=== PATIENT | female | born 1960 | race Caucasian/White ===

== ENCOUNTER 2016-11-27 23:34 | Inpatient (IN) | payer MEDICAID, OTHER ==
[~2016-11-27] VITALS: Ht 170.2 cm; Wt 83.5 kg
[~2016-11-27 23:34] MED LIST: BACTDS PO; BENA10TA48 PO; CEPH-443 PO; DICY20TA59 PO; GLYB5TAB3 PO; HYDR-3498 PO; IBUP-1542 PO; METF500T4 PO; RANI150T5 PO; SERT25TA83 PO; SITA100T8 PO; TRAM50TA2 PO
[2016-11-27 23:39] VITALS: Ht 170.2 cm; Wt 83.5 kg
[2016-11-27] MEDS ORDERED: SODIUM CHLORIDE 0.9% 1L BAG IV* STA (23:59)
[2016-11-27] MEDS ORDERED: CEFEPIME 2GM/50 ML (PMX) 50 ML IVPB STA (23:59)
[2016-11-27] MEDS ORDERED: ACETAMINOPHEN 325 MG TAB PO STA (23:59)
[2016-11-28] MEDS ORDERED: VANCOMYCIN 1 GM (PMX) 250 ML IVPB ONE
[2016-11-28 00:20] LABS: AADO2 Arterial 47.2 mmHg (7.0-24.0); Allen Test ACCEPTAB; Arterial Base Excess -13.9 mmol/L (-3.0-3); Arterial COHb 0.3 % (0.0-3.0); Arterial HCO3 9.8 mmol/L (22.0-26.0); Arterial MetHb 0.2 % (0.0-1.5); Arterial Total Hemglobin 11.2 g/dl (12.0-18.0); MODE ROOM AIR
[2016-11-28 00:27] LABS: ADD SCAN DIFF NO
[2016-11-28 00:47] LABS: INR 1.06; PROTIME 13.8 Sec (12.2-14.2); PT RATIO 1.1
[2016-11-28 00:48] LABS: PARTIAL THROMBOPLASTIN TIME 31.3 Sec (25.0-35.0)
[2016-11-28 00:53] LABS: ALBUMIN 3.5 g/dl (3.3-4.9); ALBUMIN/GLOBULIN RATIO 0.85; BILIRUBIN,INDIRECT 0.1 mg/dl (0-1.1); BILIRUBIN,TOTAL 0.1 mg/dl (0.2-1.3); CALCIUM 9.2 mg/dl (8.4-10.2); CREATININE 0.76 mg/dl (0.44-1.00); TOTAL PROTEIN 7.6 g/dl (6.1-8.1)
--- NOTE | 2016-11-28 00:55 | RADRPT ---
PROCEDURE: XR Chest. CLINICAL INDICATION: Possible sepsis. TECHNIQUE: Single frontal view of the chest. COMPARISON: 06/29/2014. FINDINGS: Cardiomegaly. Mild pulmonary vascular congestion. The lungs are clear. No signs of pleural fluid or pneumothorax are seen. The osseous structures and soft tissues are unremarkable. IMPRESSION: No evidence for active cardiopulmonary disease. RPTAT: [facility] Physician Suresh Date Time Electronically viewed and signed by Physician Surseh on 11/28/2016 00:55 RS/
[2016-11-28 01:05] LABS: TROPONIN-I 0.014 ng/ml (0.00-0.12)
[2016-11-28 01:13] LABS: ABNORMAL IP MESSAGE 1; HEMATOCRIT 37.5 % (37.0-47.0); HEMOGLOBIN 11.7 g/dl (12.0-16.0); MEAN CORPUSCULAR HEMOGLOBIN 24.6 pg (29.0-33.0); MEAN CORPUSCULAR HGB CONC 31.2 g/dl (32.0-37.0); MEAN CORPUSCULAR VOLUME 78.8 fl (82.0-101.0); PLATELET COUNT 109 10^3/UL (140-415); RED BLOOD COUNT 4.76 10^6/ul (4.20-5.40); RED CELL DISTRIBUTION WIDTH 17.5 % (11.5-14.5)
[2016-11-28] MEDS ORDERED: INSULIN HUMAN REGULAR 100 UNIT in SOD CHLORIDE 0.9% 99 ML IV SCH ×2 (01:45→04:45)
[2016-11-28] MEDS ORDERED: DEXTROSE 50% 50 ML IV PRN (01:45)
[2016-11-28] MEDS ORDERED: DEXTROSE 50% 25 ML IV PRN (01:45)
[2016-11-28] MEDS ORDERED: ADJUSTMENT OF INSULIN INFUSION RATE (DKA PROTOCOL) XX SCH (02:00)
[2016-11-28] MEDS: ACCU-CHEK XX SCH ×11 (02:00→10:41)
--- NOTE | 2016-11-28 02:02 | ERA ---
ER Documentation Chief Complaint Date/Time DATE: 11/28/16 TIME: 01:59 Chief Complaint weakness, body aches, painful urination, [id number] [id number] HPI Is a 56-year-old male weakness but is painful urination. Patient has history of diabetes mellitus has not been taking his meds. Accu-Chek was noted to be elevated in triage. He complains of body aches for the past 2-3 days along with weakness. Also complaining of polyuria polydipsia polyphagia. Noted to be febrile ROS All systems reviewed and are negative except as per history of present illness. Medications Home Meds Discontinued Reported Medications Sitagliptin* (Januvia*) 100 Mg Tablet, 100 MG PO DAILY, TAB 06/29/14 Dicyclomine Hcl* (Bentyl*) 20 Mg Tablet, 20 MG PO TID, TAB 06/29/14 Sertraline Hcl* (Sertraline Hcl*) 25 Mg Tablet, 25 MG PO DAILY, TAB 06/29/14 Ranitidine Hcl* (Ranitidine Hcl*) 150 Mg Tablet, 150 MG PO DAILY, TAB 06/29/14 Glyburide* (Glyburide*) 5 Mg Tablet, 5 MG PO BID, TAB 06/29/14 Benazepril Hcl* (Benazepril Hcl*) 10 Mg Tablet, 10 MG PO DAILY, TAB 06/29/14 Metformin Hcl* (Metformin Hcl*) 500 Mg Tablet, 500 MG PO BID, TAB 06/29/14 Discontinued Scripts Ibuprofen* (Motrin*) 600 Mg Tab, 600 MG PO Q6, #30 TAB Prov:THAO MCKEON PA-C 01/24/16 Tramadol HCl (Tramadol HCl) 50 Mg Tablet, 50 MG PO Q4 Y for PAIN, #20 TAB Prov:THAO MCKEON PA-C 01/24/16 Sulfamethoxazole-Trimethoprim* (Bactrim* DS) 800-160 Mg Tab, 1 TAB PO BID for 7 Days, TAB Prov:THAO MCKEON PA-C 01/24/16 Cephalexin* (Keflex*) 500 Mg Capsule, 500 MG PO QID for 7 Days, CAP Prov:THAO MCKEON PA-C 01/24/16 Hydrocodone Bit-Acetaminophen* ([place]*) 5-325 Mg Tab, 2 TAB PO Q4H Y for PAIN, # 40 TAB Prov:BATSHEVA PASTOR 06/30/14 Allergies Allergies: Coded Allergies: No Known Allergy (Unverified , 11/28/16) PMhx/Soc History of Surgery: Yes (HERNIA UMBILICAL, HYSTERECTOMY, APPY) Anesthesia Reaction: No Hx Neurological Disorder: No Hx Respiratory Disorders: No Hx Cardiac Disorders: Yes (HTN ) Hx Psychiatric Problems: No Hx Miscellaneous Medical Probl: Yes (DM) Hx Alcohol Use: No Hx Substance Use: No Hx Tobacco Use: No Smoking Status: Never smoker Physical Exam Vitals Vital Signs Date Time Temp Pulse Resp B/P Pulse Ox O2 Delivery O2 Flow Rate FiO2 11/28/16 01:52 100.5 118 29 111/65 99 Room Air 11/28/16 00:31 101.5 120 28 111/62 97 Room Air 11/27/16 23:55 147 35 133/87 98 Room Air 11/27/16 23:39 101.7 157 20 142/65 99 Physical Exam Const: [] Head: Atraumatic Eyes: Normal Conjunctiva ENT: Normal External Ears, Nose and Mouth. Neck: Full range of motion..~ No meningismus. Resp: Clear to auscultation bilaterally Cardio: Regular rate and rhythm, no murmurs Abd: Soft, non tender, non distended. Normal bowel sounds Skin: No petechiae or rashes Back: No midline or flank tenderness Ext: No cyanosis, or edema Neur: Awake and alert Psych: Normal Mood and Affect Result Diagram: 11/28/16 0001 11/28/16 0001 Results 24 hrs Laboratory Tests Test 11/27/16 23:48 11/27/16 23:59 11/28/16 00:01 Bedside Glucose 418mg/dL Blood Gas Specimen Source Blood arterial Arterial Blood Date Drawn 11/28/2016 12:05:00 AM Arterial Blood pH (Temp corrected) 7.335 Arterial Blood pCO2 (Temp correct) 18.8mmhg Arterial Blood pO2 (Temp corrected) 80.0mmHG Arterial Blood HCO3 9.8mmol/L Arterial Blood Base Excess -13.9mmol/L Arterial Blood Oxygen Saturation 95.5mmHG Arian Test ACCEPTAB Arterial Blood Gas Puncture Site Right Radial Arterial Blood Carboxyhemoglobin 0.3% Arterial Blood Methemoglobin 0.2% Blood Gas A-a O2 Differential 47.2mmHg Oxyhemoglobin Percent 95.0% Total Hemoglobin 11.2g/dl Blood Gas Temperature 37.0C Blood Gas Modality ROOM AIR FiO2 21.0% Blood Gas Critical Value Read Back D GABRIELLE ADLER Blood Gas Notified Whom UP Blood Gas Notified Time 11/28/2016 12:20:06 AM White Blood Count 2.010^3/ul Red Blood Count 4.7610^6/ul Hemoglobin 11.7g/dl Hematocrit 37.5% Mean Corpuscular Volume 78.8fl Mean Corpuscular Hemoglobin 24.6pg Mean Corpuscular Hemoglobin Concent 31.2g/dl Red Cell Distribution Width 17.5% Platelet Count 18570^3/UL Mean Platelet Volume fl Neutrophils % % Lymphocytes % % Monocytes % % Eosinophils % % Neutrophils # 10^3/ul Lymphocytes # 10^3/ul Monocytes # 10^3/ul Eosinophils # 10^3/ul Prothrombin Time 13.8Sec Prothrombin Time Ratio 1.1 INR International Normalized Ratio 1.06 Activated Partial Thromboplast Time 31.3Sec Sodium Level 131mmol/L Potassium Level 4.0mmol/L Chloride Level 95mmol/L Carbon Dioxide Level 11mmol/L Anion Gap 29 Blood Urea Nitrogen 14mg/dl Creatinine 0.76mg/dl Glucose Level 427mg/dl Lactic Acid Level 2.4mmol/L Calcium Level 9.2mg/dl Total Bilirubin 0.1mg/dl Direct Bilirubin 0.00mg/dl Indirect Bilirubin 0.1mg/dl Aspartate Amino Transf (AST/SGOT) 36IU/L Alanine Aminotransferase (ALT/SGPT) 35IU/L Alkaline Phosphatase 186IU/L Troponin I 0.014ng/ml Total Protein 7.6g/dl Albumin 3.5g/dl Globulin 4.10g/dl Albumin/Globulin Ratio 0.85 Current Medications Medications (Trade) Dose Ordered Sig/Joselyn Route PRN Reason Start Time Stop Time Status Last Admin Dose Admin Sodium Chloride (NS) 2,590 ml BOLUS OVER 2 HOURS STAT IV* 11/27/16 23:59 11/28/16 00:07 DC 11/28/16 00:15 Acetaminophen 650 mg 650 mg ONCE STAT PO 11/27/16 23:59 11/28/16 00:07 DC 11/28/16 00:15 Cefepime HCl 50 ml @ 100 mls/hr ONCE STAT IVPB 11/27/16 23:59 11/28/16 00:28 DC 11/28/16 00:15 Vancomycin HCl 250 ml @ 125 mls/hr ONCE ONCE IVPB 11/28/16 00:00 11/28/16 01:59 DC 11/28/16 00:52 Insulin Human Regular/Sodium Chloride (Novolin-R/NS) 100 ml @ 8.35 mls/hr TITRATE IV 11/28/16 01:45 Miscellaneous Information 1 ea NOTE XX 11/28/16 02:00 Dextrose (D50w Syringe) 25 ml PRN PRN IV DECREASED GLUCOSE 11/28/16 01:45 Dextrose (D50w Syringe) 50 ml PRN PRN IV DECREASED GLUCOSE 11/28/16 01:45 Diagnostic Test (Pha) (Accu-Chek) 1 ea Q1H XX 11/28/16 02:00 Procedures/MDM Patient's infectious symptoms have not stabilized and the patient is at risk of rapid decompensation. The patient will be admitted for careful hydration, antibiotic therapy, and infectious source control. Severe Sepsis Assessment: Infectious Source: pyleonephritis End organ damage indicated by: [Lactate > 2.0 mmol/L Severe Sepsis Managment: Blood Cultures X 2 before broad spectrum antibiotics initiated within 3 hours of recognition. 30 ml/kg NS bolus Completed Initial Lactate: 2.4 Repeat Lactate pending Critical Care: Time: 45 minutes Treatments/Evaluations: Emergent fluid management, while maintaining close respiratory support. Immediate broad spectrum antibiotic therapy. Simultaneous assessment for possible sources in order to direct therapy. Consideration for invasive and chemical support to prevent respiratory or cardiac collapse. Septic Shock Assessment (1 hour post 30 ml/kg fluid bolus): Hypotension (SBP < 90 or 40 mmHg drop, MAP < 65): No Lactic acid > 4.0 No Accepting Care Team: Current data and ongoing care discussed. Time: 2 AM Primary Provider: Hospitalist Consulting: KANDICE Outstanding Data: none Chest X-ray 1V Interpreted by me: Soft Tissue: No acute abnormalities Bones: No acute abnormalities Mediastinum/Cardiac Silhouette/Lungs: No acute abnormalities EKG: Rate/Rhythm: Normal Sinus Rhythm QRS, ST, T-waves: No changes consistent w/ acute ischemia Impression: No evidence of ischemia or arrhythmia Patient was started on insulin drip and was noted that he was diabetic ketoacidosis Departure Diagnosis: Primary Impression: DKA (diabetic ketoacidoses) Qualified Code: E13.10 - Diabetic ketoacidosis without coma associated with type 2 diabetes mellitus Additional Impression: Sepsis Qualified Code: A41.9 - Sepsis, due to unspecified organism Condition: Critical BUSTER ANTHONY Nov 28, 2016 02:01
[2016-11-28 03:16] LABS: LYMPHOCYTES # 0.2 10^3/ul (0.8-2.9); MONOCYTE # 0.1 10^3/ul (0.3-0.9); MYELOCYTES # 0.1; NEUTROPHIL # 0.2 10^3/ul (1.6-7.5)
[2016-11-28 03:18] LABS: PLATELET ESTIMATE PLT APPEAR DECREASED
[2016-11-28] MEDS ORDERED: DEXTROSE 5%-0.45% NACL 1,000 ML IV SCH (04:20)
[2016-11-28] MEDS ORDERED: DEXTROSE 50% 50 ML SYRINGE IV PRN ×4 (04:30→12:00)
[2016-11-28] MEDS ORDERED: morphine 2 MG INJ IV PRN (04:30)
[2016-11-28] MEDS: DEXTROSE 5%-0.9% NACL 1,000 ML IV SCH ×3 (04:42→20:50)
[2016-11-28 05:25] LABS: ADD SCAN DIFF NO
[2016-11-28 05:31] LABS: ABNORMAL IP MESSAGE 1; HEMOGLOBIN 9.3 g/dl (12.0-16.0); MEAN CORPUSCULAR HEMOGLOBIN 24.2 pg (29.0-33.0); MEAN CORPUSCULAR VOLUME 77.9 fl (82.0-101.0); MEAN PLATELET VOLUME 11.8 fl (7.4-10.4); PLATELET COUNT 96 10^3/UL (140-415); RED BLOOD COUNT 3.85 10^6/ul (4.20-5.40); RED CELL DISTRIBUTION WIDTH 17.9 % (11.5-14.5); WHITE BLOOD COUNT 2.7 10^3/ul (4.8-10.8)
[2016-11-28 05:51] LABS: ADD UMIC YES; UR ASCORBIC ACID NEGATIVE (NEGATIVE); UR BACTERIA FEW /HPF (NONE SEEN); UR BILIRUBIN (Dip) NEGATIVE (NEGATIVE); UR BLOOD (Dip) 2+ mg/dL (NEGATIVE); UR CLARITY CLEAR (CLEAR); UR COLOR STRAW (YELLOW); UR GLUCOSE (Dip) 3+ mg/dL (NEGATIVE); UR KETONES (Dip) 2+ mg/dL (NEGATIVE); UR LEUKOCYTE ESTERASE (Dip) NEGATIVE Leu/ul (NEGATIVE); UR MUCUS FEW /HPF (NONE SEEN); UR NITRITE (Dip) NEGATIVE (NEGATIVE); UR RBC 4 /HPF (0-5); UR TOTAL PROTEIN (Dip) NEGATIVE (NEGATIVE); UR UROBILINOGEN (Dip) NEGATIVE (NEGATIVE)
[2016-11-28 07:27] LABS: LYMPHOCYTES # 0.9 10^3/ul (0.8-2.9); MONOCYTE # 0.1 10^3/ul (0.3-0.9)
--- NOTE | 2016-11-28 07:44 | HP ---
Date/Time of Note Date/Time of Note DATE: 11/28/16 TIME: 07:37 Assessment/Plan Assessment/Plan Assessment/Plan IMPRESSION 1. DKA 2. Sepsis, as evidenced by fever, tachycardia leukopenia 3. Hyponatremia PLAN Cont DKA protocol correct electrolytes broad spectrum abx. will f/u urine and blood cx results. CXR was neg HPI/ROS Admit Date/Time Admit Date/Time Hx of Present Illness This is a 56 yo female hx of HTN and DM who presented to ER c/o generalized weakness, dysuria, increased urinary frequency as well as other vague symptoms. In ER, she was found to be in DKA and has been started on DKA protocol. Currently awaiting admission to ICU. She is leukopenic and also febrile with temp as high as 101.7. . PMH/Family/Social Social History Smoking Status: Never smoker Exam/Review of Systems Vital Signs Vitals Vital Signs Date Time Temp Pulse Resp B/P Pulse Ox O2 Delivery O2 Flow Rate FiO2 11/28/16 06:48 100.1 115 29 119/67 98 Room Air Intake and Output 11/27/16 11/27/16 11/28/16 15:00 23:00 07:00 Intake Total 50 ml Balance 50 ml Labs Result Diagram: 11/28/16 0400 11/28/16 0001 Medications Medications Current Medications Ondansetron HCl (Zofran Inj) 4 mg Q6H PRN IV NAUSEA AND/OR VOMITING; Start at 04:30 Acetaminophen (Tylenol Liquid) 650 mg Q6H PRN PO PAIN LEVEL 1-3 OR FEVER; Start 11/28/16 at 04:30 Morphine Sulfate (morphine) 2 mg Q4H PRN IV PAIN LEVEL 7-10; Start 11/28/16 at 04:30 Dextrose (D50w Syringe) 50 ml Q15M PRN IV For BS 50 or less; Start 11/28/16 at 04:30 Dextrose (D50w Syringe) 25 ml Q15M PRN IV BS between 50-70; Start 11/28/16 at 04:30 Diagnostic Test (Pha) 1 ea 1 ea Q1H XX Last administered on 11/28/16t 06:02; Admin Dose 1 EA; Start 11/28/16 at 04:30 Ceftriaxone Sodium 50 ml @ 100 mls/hr Q12 IVPB ; Start 11/28/16 at 09:00 Dextrose/Sodium Chloride (D5-NS) 1,000 ml @ 125 mls/hr Q8H IV Last administered on 11/28/16t 04:42; Admin Dose 125 MLS/HR; Start 11/28/16 at 05:00 BUSTER VASQUEZ MD Nov 28, 2016 07:44
[2016-11-28 08:17] LABS: ALBUMIN 2.6 g/dl (3.3-4.9); ALBUMIN/GLOBULIN RATIO 0.74; CALCIUM 7.6 mg/dl (8.4-10.2); CREATININE 0.64 mg/dl (0.44-1.00); POTASSIUM 3.3 mmol/L (3.5-5.1); TOTAL PROTEIN 6.1 g/dl (6.1-8.1)
[2016-11-28] MEDS: CEFTRIAXONE 1 GM/50 ML (PMX) 50 ML IVPB SCH ×2 (09:22→20:50)
[2016-11-28] MEDS: ONDANSETRON 4 MG INJ IV PRN ×2 (11:23→18:53)
[2016-11-28] MEDS: ACETAMINOPHEN 650MG/20.3ML CUP PO PRN ×2 (11:24→20:08)
[2016-11-28] MEDS ORDERED: GLUCOSE GEL 15 GRAM TUBE PO PRN ×2 (12:00)
[2016-11-28] MEDS ORDERED: GLUCOSE GEL 15 GRAM TUBE BUCCAL PRN (12:00)
[2016-11-28] MEDS ORDERED: GLUCAGON 1 MG INJ IM PRN (12:00)
[2016-11-28] MEDS: INSULIN GLARGINE [LANtus] 3 ML PEN SC SCH (12:09)
[2016-11-28] MEDS: INSULIN ASPART [NOVOLOG] 3 ML PEN SC SCH ×5 (13:09→21:28)
[2016-11-28 14:21] LABS: HAAIG REFLEX REFLEX FILED
[2016-11-28 14:28] VITALS: TEMP 98.7
[2016-11-28 14:33] LABS: CHOL/HDL RATIO 2.2 RATIO
[2016-11-28 14:42] LABS: TOTAL IRON BINDING CAPACITY 257 ug/dl (241-421)
[2016-11-28 14:51] LABS: IRON < 10 ug/dl (35-150)
[2016-11-28 15:22] LABS: HEPATITIS B CORE ANTIBODY NEGATIVE (NEGATIVE)
[2016-11-28 15:27] VITALS: BP 107/56; PULSE 107
[2016-11-28 15:37] VITALS: BP 107/56; PULSE 107; RESP 18
[2016-11-28] MEDS ORDERED: PANTOPRAZOLE 40 MG INJ ONE (19:57)
[2016-11-28] MEDS: PANTOPRAZOLE 40 MG INJ IV SCH (19:59)
[2016-11-28 20:04] VITALS: BP_SYST 130; PULSE 103; RESP 16
[2016-11-28 22:01] VITALS: PULSE 97
[2016-11-28 22:05] VITALS: BP 123/58; RESP 19
[2016-11-29] VITALS (12 sets, daily range): BP systolic 134–185; BP diastolic 65–81; PULSE 93–107; RESP 17–19
[2016-11-29] MEDS: ACCU-CHEK XX SCH (02:00)
[2016-11-29] MEDS: ACETAMINOPHEN 650MG/20.3ML CUP PO PRN ×2 (03:56→20:04)
[2016-11-29] MEDS: DEXTROSE 5%-0.9% NACL 1,000 ML IV SCH (05:00)
[2016-11-29] MEDS: PANTOPRAZOLE 40 MG INJ IV SCH (05:28)
[2016-11-29] MEDS: INSULIN ASPART [NOVOLOG] 3 ML PEN SC SCH ×6 (08:47→21:45)
[2016-11-29] MEDS: INSULIN GLARGINE [LANtus] 3 ML PEN SC SCH (08:47)
[2016-11-29 10:20] LABS: ADD SCAN DIFF NO
[2016-11-29 10:27] LABS: ABNORMAL IP MESSAGE 1; HEMATOCRIT 30.9 % (37.0-47.0); HEMOGLOBIN 9.6 g/dl (12.0-16.0); MEAN CORPUSCULAR HEMOGLOBIN 24.4 pg (29.0-33.0); MEAN CORPUSCULAR HGB CONC 31.1 g/dl (32.0-37.0); MEAN CORPUSCULAR VOLUME 78.6 fl (82.0-101.0); MEAN PLATELET VOLUME 11.6 fl (7.4-10.4); PLATELET COUNT 99 10^3/UL (140-415); RED BLOOD COUNT 3.93 10^6/ul (4.20-5.40); RED CELL DISTRIBUTION WIDTH 18.1 % (11.5-14.5); WHITE BLOOD COUNT 2.6 10^3/ul (4.8-10.8)
[2016-11-29] MEDS: CEFTRIAXONE 1 GM/50 ML (PMX) 50 ML IVPB SCH ×2 (10:36→21:41)
[2016-11-29] MEDS: SOD CHLORIDE 0.9% 1,000 ML IV SCH ×2 (10:36→23:20)
[2016-11-29 10:46] LABS: CALCIUM 8.1 mg/dl (8.4-10.2); CREATININE 0.64 mg/dl (0.44-1.00); POTASSIUM 3.4 mmol/L (3.5-5.1)
[2016-11-29 10:53] LABS: MAGNESIUM 1.6 mg/dl (1.7-2.5); PHOSPHORUS 1.3 mg/dl (2.5-4.9)
[2016-11-29] MEDS ORDERED: POTASSIUM CHLORIDE (SR) 20 MEQ TAB PO STA (12:02)
--- NOTE | 2016-11-29 12:16 | PN ---
Date/Time of Note Date/Time of Note DATE: 11/29/16 TIME: 12:09 Assessment/Plan VTE Prophylaxis VTE Prophylaxis Intervention: heparin Lines/Catheters IV [facility]from [facility] Saline Lock Urinary Cath still in place: No Assessment/Plan Chief Complaint/Hosp Course Assessment and plan: 56 yo female hx of HTN and DM who presented to ER c/o generalized weakness, dysuria, increased urinary frequency as well as DKA. 1. DKA - A1c appears to be very elevated, reading is not able to be obtained. Per family patient lost her Medi-Roosevelt recently, has not been able to take her diabetes medicines at home. -Continue insulin regimen, follow-up A1c levels. May need radiation control worker as well. Follow with case management regarding her insurance issues. 2. Sepsis, as evidenced by fever, tachycardia leukopenia-likely source urinary tract infection, although unclear. Still had positive fever last night. -Continue broad-spectrum antibiotics, follow final urine culture results. Tylenol as needed pain and fever 3. Hyponatremia-resolved, monitor BMP daily 4. Low electrolytes: We will replete low magnesium, low phosphorus, low potassium today. Also get physical therapy consult 5. GI prophylaxis: PPI Problems: Subjective 24 Hr Interval Summary Free Text/Dictation Patient more awake and alert, family at the bedside. Did have fever last night. Exam/Review of Systems Vital Signs Vitals Vital Signs Date Time Temp Pulse Resp B/P Pulse Ox O2 Delivery O2 Flow Rate FiO2 11/29/16 12:00 98.4 92 18 140/72 97 11/28/16 20:04 Room Air Intake and Output 11/28/16 11/28/16 11/29/16 15:00 23:00 07:00 Intake Total 1400 ml Output Total 2 ml Balance 1398 ml Exam GEN standing up in the room, family at the bedside, still lethargic but more alert Head: Atraumatic Eyes: Normal Conjunctiva ENT: Normal External Ears, Nose and Mouth. Neck: Full range of motion. No meningismus. Resp: Clear to auscultation bilaterally Cardio: Regular rate and rhythm, no murmurs Abd: Soft, non tender, non distended. Normal bowel sounds Skin: No petechiae or rashes Back: No midline or flank tenderness Ext: No cyanosis, or edema Neur: Awake and alert Psych: Normal Mood and Affect Results Result Diagram: 11/29/16 1013 11/29/16 1013 Results 24 hrs Laboratory Tests Test 11/28/16 13:14 11/28/16 15:19 11/28/16 18:22 11/28/16 21:18 Bedside Glucose 176 265 H 235 H 305 H Test 11/29/16 01:56 11/29/16 08:44 11/29/16 10:13 Bedside Glucose 236 H 322 H White Blood Count 2.6 L Red Blood Count 3.93 L Hemoglobin 9.6 L Hematocrit 30.9 L Mean Corpuscular Volume 78.6 L Mean Corpuscular Hemoglobin 24.4 L Mean Corpuscular Hemoglobin Concent 31.1 L Red Cell Distribution Width 18.1 H Platelet Count 99 L Mean Platelet Volume 11.6 H Neutrophils % Eosinophils % Neutrophils # Eosinophils # Sodium Level 144 Potassium Level 3.4 L Chloride Level Carbon Dioxide Level 21 Anion Gap 16 Blood Urea Nitrogen 7 Creatinine 0.64 Glucose Level 325 H Calcium Level 8.1 L Phosphorus Level 1.3 L Magnesium Level 1.6 L Medications Medications Current Medications Ondansetron HCl (Zofran Inj) 4 mg Q6H PRN IV NAUSEA AND/OR VOMITING Last administered on 11/28/16 18:53; Admin Dose 4 MG; Start 11/28/16 at 04:30 Acetaminophen (Tylenol Liquid) 650 mg Q6H PRN PO PAIN LEVEL 1-3 OR FEVER Last administered on 11/29/16 03:56; Admin Dose 650 MG; Start 11/28/16 at 04:30 Morphine Sulfate 2 mg 2 mg Q4H PRN IV PAIN LEVEL 7-10; Start 11/28/16 at 04:30 Ceftriaxone Sodium (Rocephin) 50 ml @ 100 mls/hr Q12 IVPB Last administered on 11/29/16 10:36; Admin Dose 100 MLS/HR; Start 11/28/16 at 09:00 Insulin Glargine (Lantus) 20 unit DAILY@08 SC Last administered on 11/29/16 08 :47; Admin Dose 20 UNIT; Start 11/28/16 at 12:00 Diagnostic Test (Pha) (Accu-Chek) 1 ea 02 XX ; Start 11/29/16 at 02:00 Miscellaneous Information 1 ea NOTE XX ; Start 11/28/16 at 12:00 Glucose (Glutose) 15 gm Q15M PRN PO DECREASED GLUCOSE; Start 11/28/16 at 12:00 Glucose (Glutose) 22.5 gm Q15M PRN PO DECREASED GLUCOSE; Start 11/28/16 at 12: 00 Dextrose (D50w Syringe) 25 ml Q15M PRN IV DECREASED GLUCOSE; Start 11/28/16 at 12:00 Dextrose (D50w Syringe) 50 ml Q15M PRN IV DECREASED GLUCOSE; Start 11/28/16 at 12:00 Glucagon (Glucagen) 1 mg Q15M PRN IM DECREASED GLUCOSE; Start 11/28/16 at 12:00 Glucose (Glutose) 15 gm Q15M PRN BUCCAL DECREASED GLUCOSE; Start 11/28/16 at 12 :00 Pantoprazole 40 mg 40 mg DAILY@06 IV Last administered on 11/29/16 05:28; Admin Dose 40 MG; Start 11/28/16 at 20:00 Sodium Chloride 1,000 ml @ 75 mls/hr [id number] IV Last administered on 10:36; Admin Dose 75 MLS/HR; Start 11/29/16 at 10:00 Potassium Phosphate 60 meq/ Sodium Chloride 263.6364 ml @ 65.909 m... ONCE IVPB ; Start 11/29/16 at 14:00; Stop 11/29/16 at 17:59 Magnesium Sulfate (Magnesium Sulfate 2 Gm/50 ml) 50 ml @ 25 mls/hr ONCE ONCE IVPB ; Start 11/29/16 at 12:30; Stop 11/29/16 at 14:29; Status VARUN GASTELUM Nov 29, 2016 12:16
[2016-11-29] MEDS ORDERED: MAGNESIUM SULFATE 2 GM/50 ML 50 ML IVPB ONE (12:30)
[2016-11-29 13:06] LABS: MICROALBUMIN 3.4 mg/dL
[2016-11-29 13:15] LABS: EOSINOPHILS # 0.1 10^3/ul (0.0-0.5); LYMPHOCYTES # 0.5 10^3/ul (0.8-2.9); MONOCYTE # 0.3 10^3/ul (0.3-0.9); NEUTROPHIL # 1.6 10^3/ul (1.6-7.5)
[2016-11-29] MEDS ORDERED: POTASSIUM PHOSPHATE 60 MEQ in SOD CHLORIDE 0.9% 250 ML IVPB SCH (14:00)
[2016-11-29] MEDS ORDERED: INSULIN ASPART [NOVOLOG] 3 ML PEN SC SCH (18:05)
[2016-11-29] MEDS: HEPARIN 5,000 UNIT/0.5 ML VIAL SC SCH (21:43)
[2016-11-30] VITALS (12 sets, daily range): BP systolic 19–152; BP diastolic 67–97; PULSE 85–100; RESP 18–19
[2016-11-30] MEDS: ACCU-CHEK XX SCH (02:00)
[2016-11-30] MEDS: PANTOPRAZOLE 40 MG INJ IV SCH (06:31)
[2016-11-30] MEDS: ACETAMINOPHEN 650MG/20.3ML CUP PO PRN ×2 (06:35→23:14)
[2016-11-30] MEDS ORDERED: INSULIN GLARGINE [LANtus] 3 ML PEN SC SCH ×2 (08:00)
[2016-11-30 08:16] LABS: MAGNESIUM 1.8 mg/dl (1.7-2.5); PHOSPHORUS 1.9 mg/dl (2.5-4.9)
[2016-11-30] MEDS: INSULIN ASPART [NOVOLOG] 3 ML PEN SC SCH ×7 (08:20→20:55)
[2016-11-30] MEDS: HEPARIN 5,000 UNIT/0.5 ML VIAL SC SCH ×2 (08:21→20:52)
[2016-11-30] MEDS: CEFTRIAXONE 1 GM/50 ML (PMX) 50 ML IVPB SCH ×2 (08:23→20:51)
[2016-11-30] MEDS: SOD CHLORIDE 0.9% 1,000 ML IV SCH (10:31)
[2016-11-30 11:32] LABS: CALCIUM 7.8 mg/dl (8.4-10.2); CREATININE 0.52 mg/dl (0.44-1.00); POTASSIUM 3.5 mmol/L (3.5-5.1)
--- NOTE | 2016-11-30 11:53 | PN ---
Date/Time of Note Date/Time of Note DATE: 11/30/16 TIME: 11:51 Assessment/Plan VTE Prophylaxis VTE Prophylaxis Intervention: heparin Lines/Catheters IV [facility] Peripheral IV Urinary Cath still in place: No Assessment/Plan Chief Complaint/Hosp Course Assessment and plan: 56 yo female hx of HTN and DM who presented to ER c/o generalized weakness, dysuria, increased urinary frequency as well as DKA. 1. DKA -has been slowly resolving, but sugars are still quite elevated in the 250-325 range. A1c appears to be very elevated, reading is not able to be obtained. Per family patient lost her Medi-[place] recently, has not been able to take her diabetes medicines at home. -Continue insulin regimen. Will order stat BMP as well. Continue aspart with meals, moderate insulin sliding scale, Lantus. - may need certified adaptive physical educator as well. Follow with case management regarding her insurance issues. 2. Sepsis, as evidenced by fever, tachycardia leukopenia-likely source urinary tract infection, although unclear. Still had positive fever last night again. -Continue broad-spectrum antibiotics, follow final urine culture results. Tylenol as needed pain and fever 3. Hyponatremia-resolved, monitor BMP daily 4. Low electrolytes: We will replete low phosphorus, low potassium today 5. GI prophylaxis: PPI Problems: Subjective 24 Hr Interval Summary Free Text/Dictation No acute events overnight, patient still with quite elevated blood sugars despite increases in insulin. Exam/Review of Systems Vital Signs Vitals Vital Signs Date Time Temp Pulse Resp B/P Pulse Ox O2 Delivery O2 Flow Rate FiO2 11/30/16 08:00 97 11/30/16 07:53 97.8 18 144/71 91 11/28/16 20:04 Room Air Intake and Output 11/29/16 11/29/16 11/30/16 15:00 23:00 07:00 Intake Total 50 ml 1550 ml 1350 ml Balance 50 ml 1550 ml 1350 ml Exam GEN lying in bed, still lethargic but more alert Head: Atraumatic Eyes: Normal Conjunctiva ENT: Normal External Ears, Nose and Mouth. Neck: Full range of motion. No meningismus. Resp: Clear to auscultation bilaterally Cardio: Regular rate and rhythm, no murmurs Abd: Soft, non tender, non distended. Normal bowel sounds Skin: No petechiae or rashes Back: No midline or flank tenderness Ext: No cyanosis, or edema Neur: Awake and alert Psych: Normal Mood and Affect Results Result Diagram: 11/29/16 1013 11/30/16 0700 Results 24 hrs Laboratory Tests Test 11/29/16 12:10 11/29/16 12:14 11/29/16 17:30 11/29/16 21:17 Lab Scanned Report REFERENCE LAB Bedside Glucose 267 H 281 H 349 H Test 11/30/16 02:07 11/30/16 07:00 11/30/16 08:17 11/30/16 11:48 Bedside Glucose 241 H 275 H 274 H Sodium Level 140 Potassium Level 3.5 Chloride Level 106 Carbon Dioxide Level 20 L Anion Gap 18 H Blood Urea Nitrogen 5 L Creatinine 0.52 Glucose Level 257 H Calcium Level 7.8 L Phosphorus Level 1.9 L Magnesium Level 1.8 Medications Medications Current Medications Ondansetron HCl (Zofran Inj) 4 mg Q6H PRN IV NAUSEA AND/OR VOMITING Last administered on 11/28/16 18:53; Admin Dose 4 MG; Start 11/28/16 at 04:30 Acetaminophen (Tylenol Liquid) 650 mg Q6H PRN PO PAIN LEVEL 1-3 OR FEVER Last administered on 11/30/16 06:35; Admin Dose 650 MG; Start 11/28/16 at 04:30 Morphine Sulfate 2 mg 2 mg Q4H PRN IV PAIN LEVEL 7-10; Start 11/28/16 at 04:30 Ceftriaxone Sodium (Rocephin) 50 ml @ 100 mls/hr Q12 IVPB Last administered on 11/30/16 08:23; Admin Dose 100 MLS/HR; Start 11/28/16 at 09:00 Diagnostic Test (Pha) (Accu-Chek) 1 ea 02 XX ; Start 11/29/16 at 02:00 Miscellaneous Information 1 ea NOTE XX ; Start 11/28/16 at 12:00 Glucose (Glutose) 15 gm Q15M PRN PO DECREASED GLUCOSE; Start 11/28/16 at 12:00 Glucose (Glutose) 22.5 gm Q15M PRN PO DECREASED GLUCOSE; Start 11/28/16 at 12: 00 Dextrose (D50w Syringe) 25 ml Q15M PRN IV DECREASED GLUCOSE; Start 11/28/16 at 12:00 Dextrose (D50w Syringe) 50 ml Q15M PRN IV DECREASED GLUCOSE; Start 11/28/16 at 12:00 Glucagon (Glucagen) 1 mg Q15M PRN IM DECREASED GLUCOSE; Start 11/28/16 at 12:00 Glucose (Glutose) 15 gm Q15M PRN BUCCAL DECREASED GLUCOSE; Start 11/28/16 at 12 :00 Pantoprazole 40 mg 40 mg DAILY@06 IV Last administered on 11/30/16 06:31; Admin Dose 40 MG; Start 11/28/16 at 20:00 Sodium Chloride (NS) 1,000 ml @ 75 mls/hr [id number] IV Last administered on 11/30 10:31; Admin Dose 75 MLS/HR; Start 11/29/16 at 10:00 Heparin Sodium (Porcine) (Heparin (5000 Units/0.5 ml)) 5,000 unit BID SC Last administered on 11/30/16 08:21; Admin Dose 5,000 UNIT; Start 11/29/16 at 21:00 Insulin Glargine 55 unit 55 unit DAILY@08 SC Last administered on 11/30/16 08: 22; Admin Dose 55 UNIT; Start 11/30/16 at 08:00 Potassium Phosphate/Sodium Chloride (K Phos (Meq)/NS) 259.0909 ml @ 64.773 m... ONCE ONCE IVPB ; Start 11/30/16 at 12:00; Stop 11/30/16 at 15:59; Status VARUN GASTELUM Nov 30, 2016 11:53
[2016-11-30 12:52] LABS: ABNORMAL IP MESSAGE 1; ADD SCAN DIFF NO; BASOPHILS % 0.4 % (0.0-2.0); EOSINOPHILS % 0.8 % (0.0-7.0); HEMATOCRIT 27.7 % (37.0-47.0); LYMPHOCYTES # 0.7 10^3/ul (0.8-2.9); LYMPHOCYTES % 25.7 % (15.0-51.0); MEAN CORPUSCULAR HEMOGLOBIN 24.9 pg (29.0-33.0); MEAN CORPUSCULAR HGB CONC 32.5 g/dl (32.0-37.0); MEAN CORPUSCULAR VOLUME 76.7 fl (82.0-101.0); MEAN PLATELET VOLUME 12.6 fl (7.4-10.4); MONOCYTE # 0.3 10^3/ul (0.3-0.9); MONOCYTES % 11.5 % (0.0-11.0); NEUTROPHIL # 1.4 10^3/ul (1.6-7.5); NEUTROPHILS % 53.6 % (39.0-77.0); PLATELET COUNT 114 10^3/UL (140-415); RED BLOOD COUNT 3.61 10^6/ul (4.20-5.40); RED CELL DISTRIBUTION WIDTH 17.9 % (11.5-14.5); WHITE BLOOD COUNT 2.6 10^3/ul (4.8-10.8)
[2016-11-30] MEDS ORDERED: POTASSIUM PHOSPHATE 40 MEQ in SOD CHLORIDE 0.9% 250 ML IVPB ONE (13:30)
[2016-11-30 15:13] LABS: CALCIUM 7.9 mg/dl (8.4-10.2); CREATININE 0.54 mg/dl (0.44-1.00); POTASSIUM 3.7 mmol/L (3.5-5.1)
[2016-11-30] MEDS ORDERED: INSULIN GLARGINE [LANtus] 3 ML PEN SC ONE (17:00)
[2016-11-30] MEDS ORDERED: FAMOTIDINE 20 MG TAB PO ONE (17:30)
[2016-12-01] VITALS (11 sets, daily range): BP systolic 138–171; BP diastolic 68–81; PULSE 79–92; RESP 16–20
[2016-12-01] MEDS: SOD CHLORIDE 0.9% 1,000 ML IV SCH ×2 (02:00→15:20)
[2016-12-01] MEDS ORDERED: ACCU-CHEK XX SCH ×2 (02:00)
[2016-12-01] MEDS: ACCU-CHEK XX SCH (02:00)
[2016-12-01] MEDS: ACETAMINOPHEN 650MG/20.3ML CUP PO PRN (06:19)
[2016-12-01] MEDS: PANTOPRAZOLE 40 MG INJ IV SCH (06:19)
[2016-12-01] MEDS: INSULIN ASPART [NOVOLOG] 3 ML PEN SC SCH ×7 (08:00→21:00)
[2016-12-01] MEDS: INSULIN GLARGINE [LANtus] 3 ML PEN SC SCH (08:01)
[2016-12-01] MEDS: CEFTRIAXONE 1 GM/50 ML (PMX) 50 ML IVPB SCH ×2 (08:02→21:15)
[2016-12-01] MEDS: HEPARIN 5,000 UNIT/0.5 ML VIAL SC SCH ×2 (08:02→21:24)
[2016-12-01 08:37] LABS: ABNORMAL IP MESSAGE 1; BASOPHILS % 0.6 % (0.0-2.0); EOSINOPHILS % 0.6 % (0.0-7.0); HEMATOCRIT 29.9 % (37.0-47.0); HEMOGLOBIN 9.2 g/dl (12.0-16.0); LYMPHOCYTES # 0.8 10^3/ul (0.8-2.9); LYMPHOCYTES % 23.9 % (15.0-51.0); MEAN CORPUSCULAR HEMOGLOBIN 23.9 pg (29.0-33.0); MEAN CORPUSCULAR HGB CONC 30.8 g/dl (32.0-37.0); MEAN CORPUSCULAR VOLUME 77.7 fl (82.0-101.0); MEAN PLATELET VOLUME 11.9 fl (7.4-10.4); MONOCYTE # 0.4 10^3/ul (0.3-0.9); MONOCYTES % 13.4 % (0.0-11.0); NEUTROPHIL # 1.7 10^3/ul (1.6-7.5); NEUTROPHILS % 52.6 % (39.0-77.0); NUCLEATED RED BLOOD CELLS% 0.6 /100WBC (0.0-0.0); PLATELET COUNT 129 10^3/UL (140-415); RED BLOOD COUNT 3.85 10^6/ul (4.20-5.40); RED CELL DISTRIBUTION WIDTH 18.2 % (11.5-14.5); WHITE BLOOD COUNT 3.1 10^3/ul (4.8-10.8)
[2016-12-01 08:50] LABS: MAGNESIUM 1.6 mg/dl (1.7-2.5); PHOSPHORUS 3.2 mg/dl (2.5-4.9)
[2016-12-01 08:54] LABS: CALCIUM 8.4 mg/dl (8.4-10.2); CREATININE 0.49 mg/dl (0.44-1.00); POTASSIUM 3.8 mmol/L (3.5-5.1)
[2016-12-01 09:16] LABS: POSITIVE DIFF @See below
--- NOTE | 2016-12-01 14:41 | PN ---
Date/Time of Note Date/Time of Note DATE: 12/01/16 TIME: 14:39 Assessment/Plan VTE Prophylaxis VTE Prophylaxis Intervention: heparin Lines/Catheters IV [facility]from [facility] Peripheral IV Urinary Cath still in place: No Assessment/Plan Chief Complaint/Hosp Course Assessment and plan: 56 yo female hx of HTN and DM who presented to ER c/o generalized weakness, dysuria, increased urinary frequency as well as DKA. 1. DKA -has been slowly resolving, but sugars are now also slightly improved since elevation of the insulin doses as yesterday. A1c appears to be very elevated, reading is not able to be obtained. Per family patient lost her Medi- [place] recently, has not been able to take her diabetes medicines at home. -Continue insulin regimen. 25 unit aspart with meals, moderate insulin sliding scale, 75 units Lantus nightly. - may need visual educator as well. Follow with case management regarding her insurance issues. 2. Sepsis, as evidenced by fever, tachycardia leukopenia-likely source likely now appears to be E. coli bacteremia 2 out of 2 bottles -Continue broad-spectrum antibiotics (sensitive to Rocephin), will order for PICC line,Tylenol as needed pain and fever. Will likely need 2 weeks of IV antibiotic treatment 3. Hyponatremia-resolved, monitor BMP daily 4. Low electrolytes: We will replete low magnesium today 5. GI prophylaxis: PPI Problems: Subjective 24 Hr Interval Summary Free Text/Dictation Patient sugars are improved. Exam/Review of Systems Vital Signs Vitals Vital Signs Date Time Temp Pulse Resp B/P Pulse Ox O2 Delivery O2 Flow Rate FiO2 12/01/16 12:32 87 12/01/16 12:00 98.4 18 138/73 98 11/28/16 20:04 Room Air Intake and Output 11/30/16 11/30/16 12/01/16 15:00 23:00 07:00 Intake Total 310 ml 2275 ml 1600 ml Balance 310 ml 2275 ml 1600 ml Exam GEN lying in bed, still lethargic but more alert Head: Atraumatic Eyes: Normal Conjunctiva ENT: Normal External Ears, Nose and Mouth. Neck: Full range of motion. No meningismus. Resp: Clear to auscultation bilaterally Cardio: Regular rate and rhythm, no murmurs Abd: Soft, non tender, non distended. Normal bowel sounds Skin: No petechiae or rashes Back: No midline or flank tenderness Ext: No cyanosis, or edema Neur: Awake and alert Psych: Normal Mood and Affect Results Result Diagram: 12/01/1672712/01/16727 Results 24 hrs Laboratory Tests Test 11/30/16 17:13 11/30/16 20:18 12/01/16 07:28 12/01/16 07:57 Bedside Glucose 170 164 166 White Blood Count 3.1 L Red Blood Count 3.85 L Hemoglobin 9.2 L Hematocrit 29.9 L Mean Corpuscular Volume 77.7 L Mean Corpuscular Hemoglobin 23.9 L Mean Corpuscular Hemoglobin Concent 30.8 L Red Cell Distribution Width 18.2 H Platelet Count 129 L Mean Platelet Volume 11.9 H Neutrophils % 52.6 Lymphocytes % 23.9 Monocytes % 13.4 H Eosinophils % 0.6 Basophils % 0.6 Nucleated Red Blood Cells % 0.6 H Neutrophils # 1.7 Lymphocytes # 0.8 Monocytes # 0.4 Eosinophils # 0.0 Basophils # 0.0 Nucleated Red Blood Cells # 0.0 Sodium Level 145 H Potassium Level 3.8 Chloride Level 105 Carbon Dioxide Level 27 Anion Gap 17 H Blood Urea Nitrogen 6 L Creatinine 0.49 Glucose Level 170 Calcium Level 8.4 Phosphorus Level 3.2 Magnesium Level 1.6 L Test 12/01/16 12:08 Bedside Glucose 142 Medications Medications Current Medications Ondansetron HCl (Zofran Inj) 4 mg Q6H PRN IV NAUSEA AND/OR VOMITING Last administered on 11/28/16 18:53; Admin Dose 4 MG; Start 11/28/16 at 04:30 Acetaminophen (Tylenol Liquid) 650 mg Q6H PRN PO PAIN LEVEL 1-3 OR FEVER Last administered on 12/01/16 06:19; Admin Dose 650 MG; Start 11/28/16 at 04:30 Morphine Sulfate 2 mg 2 mg Q4H PRN IV PAIN LEVEL 7-10; Start 11/28/16 at 04:30 Ceftriaxone Sodium (Rocephin) 50 ml @ 100 mls/hr Q12 IVPB Last administered on 12/01/16 08:02; Admin Dose 100 MLS/HR; Start 11/28/16 at 09:00 Diagnostic Test (Pha) (Accu-Chek) 1 ea 02 XX ; Start 11/29/16 at 02:00 Miscellaneous Information 1 ea NOTE XX ; Start 11/28/16 at 12:00 Glucose (Glutose) 15 gm Q15M PRN PO DECREASED GLUCOSE; Start 11/28/16 at 12:00 Glucose (Glutose) 22.5 gm Q15M PRN PO DECREASED GLUCOSE; Start 11/28/16 at 12: 00 Dextrose (D50w Syringe) 25 ml Q15M PRN IV DECREASED GLUCOSE; Start 11/28/16 at 12:00 Dextrose (D50w Syringe) 50 ml Q15M PRN IV DECREASED GLUCOSE; Start 11/28/16 at 12:00 Glucagon (Glucagen) 1 mg Q15M PRN IM DECREASED GLUCOSE; Start 11/28/16 at 12:00 Glucose (Glutose) 15 gm Q15M PRN BUCCAL DECREASED GLUCOSE; Start 11/28/16 at 12 :00 Pantoprazole 40 mg 40 mg DAILY@06 IV Last administered on 12/01/16 06:19; Admin Dose 40 MG; Start 11/28/16 at 20:00 Sodium Chloride (NS) 1,000 ml @ 75 mls/hr [id number] IV Last administered on 12/01 02:00; Admin Dose 75 MLS/HR; Start 11/29/16 at 10:00 Heparin Sodium (Porcine) (Heparin (5000 Units/0.5 ml)) 5,000 unit BID SC Last administered on 12/01/16 08:02; Admin Dose 5,000 UNIT; Start 11/29/16 at 21:00 Insulin Glargine 75 unit 75 unit DAILY@08 SC Last administered on 12/01/16 08: 01; Admin Dose 75 UNIT; Start 12/01/16 at 08:00 Magnesium Sulfate (Magnesium Sulfate 2 Gm/50 ml) 50 ml @ 25 mls/hr ONCE ONCE IVPB ; Start 12/01/16 at 15:00; Stop 12/01/16 at 16:59 Diphenhydramine HCl (Benadryl) 25 mg Q6H PRN PO ITCHING; Start 12/01/16 at 15: 00 Lidocaine (Xylocaine 1% (Mpf)) 5 ml ONCE ONCE SC ; Start 12/01/16 at 15:00; Stop 12/01/16 at 15:01; Status VARUN GASTELUM Dec 01, 2016 14:41
[2016-12-01] MEDS ORDERED: LIDOCAINE 1% (MPF) 5 ML VIAL SC ONE ×2 (15:00→16:00)
[2016-12-01] MEDS ORDERED: MAGNESIUM SULFATE 2 GM/50 ML 50 ML IVPB ONE (15:00)
[2016-12-01] MEDS: DIPHENHYDRAMINE 25 MG CAP PO PRN (15:14)
--- NOTE | 2016-12-01 16:41 | RADRPT ---
PROCEDURE: Ultrasound guidance for placement of needle in left upper extremity vein. CLINICAL INDICATION: Venous access. TECHNIQUE: Limited sonography of the left upper extremity was performed. Ultrasound images were recorded and s tored in the patient's medical record. COMPARISON: None. FINDINGS: The ultrasound images demonstrate a patent left upper extremity vein. The PICC line was inserted by the PICC line nurse. IMPRESSION: 1. Ultrasound guidance for a needle placement in a left upper extremity vein. 2. The left upper extremity vein is patent. RPTAT: QQ .Rufino Lara MD, MD Date Time Electronically viewed and signed by .Rufino Lara MD, MD on 12/01/2016 16:41 .R/
--- NOTE | 2016-12-01 16:42 | RADRPT ---
PROCEDURE: XR Chest. CLINICAL INDICATION: Check PICC line position. TECHNIQUE: Single frontal view. COMPARISON: 11/28/2016. FINDINGS: There is a left arm PICC line with the tip in the left internal jugular vein. The lungs are clear. The heart is enlarged. There is no pleural effusion. There is no pneumothorax. IMPRESSION: 1. Left arm PICC line tip in left internal jugular vein. 2. Cardiomegaly. 3. Clear lungs. RPTAT: QQ .Rufino Lara MD, MD Date Time Electronically viewed and signed by .Rufino Lara MD, MD on 12/01/2016 16:42 .R/
--- NOTE | 2016-12-01 16:49 | RADRPT ---
PROCEDURE: XR Chest. CLINICAL INDICATION: Check PICC line position. TECHNIQUE: Single frontal view. COMPARISON: Prior study done earlier the same day. FINDINGS: There is a left arm PICC line with the tip in the cavoatrial junction region. The lungs are clear. The heart is enlarged. There is no pleural effusion. There is no pneumothorax. IMPRESSION: 1. Left arm PICC line tip in satisfactory position in the cavoatrial junction region. 2. Cardiomegaly. 3. Otherwise normal chest radiograph. RPTAT: QQ .Rufino Lara MD, MD Date Time Electronically viewed and signed by .Rufino Lara MD, MD on 12/01/2016 16:49 .R/
[2016-12-01] MEDS ORDERED: hydrALAzine 20 MG INJ IV PRN (17:30)
[2016-12-02] MEDS: ACETAMINOPHEN 650MG/20.3ML CUP PO PRN ×2 (01:13→22:03)
[2016-12-02 02:00] VITALS: BP 146/70
[2016-12-02] MEDS: ACCU-CHEK XX SCH (02:00)
[2016-12-02] MEDS: SOD CHLORIDE 0.9% 1,000 ML IV SCH ×2 (05:10→18:00)
[2016-12-02] MEDS: PANTOPRAZOLE 40 MG INJ IV SCH (05:10)
[2016-12-02 06:36] LABS: ABNORMAL IP MESSAGE 1; BASOPHILS % 0.6 % (0.0-2.0); EOSINOPHILS % 0.3 % (0.0-7.0); HEMATOCRIT 28.9 % (37.0-47.0); HEMOGLOBIN 9.1 g/dl (12.0-16.0); LYMPHOCYTES % 30.3 % (15.0-51.0); MEAN CORPUSCULAR HEMOGLOBIN 24.1 pg (29.0-33.0); MEAN CORPUSCULAR HGB CONC 31.5 g/dl (32.0-37.0); MEAN CORPUSCULAR VOLUME 76.7 fl (82.0-101.0); MEAN PLATELET VOLUME 10.9 fl (7.4-10.4); MONOCYTE # 0.4 10^3/ul (0.3-0.9); MONOCYTES % 13.9 % (0.0-11.0); NEUTROPHIL # 1.2 10^3/ul (1.6-7.5); NEUTROPHILS % 38.5 % (39.0-77.0); NUCLEATED RED BLOOD CELLS% 0.9 /100WBC (0.0-0.0); PLATELET COUNT 144 10^3/UL (140-415); RED BLOOD COUNT 3.77 10^6/ul (4.20-5.40); RED CELL DISTRIBUTION WIDTH 17.7 % (11.5-14.5); WHITE BLOOD COUNT 3.2 10^3/ul (4.8-10.8)
[2016-12-02 06:50] LABS: POSITIVE DIFF @See below
[2016-12-02 06:59] LABS: CALCIUM 8.5 mg/dl (8.4-10.2); CREATININE 0.45 mg/dl (0.44-1.00); POTASSIUM 3.5 mmol/L (3.5-5.1)
[2016-12-02 07:03] LABS: MAGNESIUM 1.9 mg/dl (1.7-2.5); PHOSPHORUS 4.2 mg/dl (2.5-4.9)
[2016-12-02 07:31] VITALS: BP 153/68; RESP 20
[2016-12-02] MEDS: CEFTRIAXONE 1 GM/50 ML (PMX) 50 ML IVPB SCH ×2 (08:11→20:24)
[2016-12-02] MEDS: HEPARIN 5,000 UNIT/0.5 ML VIAL SC SCH ×2 (08:18→20:33)
[2016-12-02] MEDS: INSULIN GLARGINE [LANtus] 3 ML PEN SC SCH (08:19)
[2016-12-02] MEDS: INSULIN ASPART [NOVOLOG] 3 ML PEN SC SCH ×7 (08:19→20:29)
--- NOTE | 2016-12-02 09:59 | PN ---
Date/Time of Note Date/Time of Note DATE: 12/02/16 TIME: 09:55 Assessment/Plan VTE Prophylaxis VTE Prophylaxis Intervention: heparin Lines/Catheters IV [facility] Type [facility] PICC Line Central line still needed: Yes Urinary Cath still in place: No Assessment/Plan Chief Complaint/Hosp Course Assessment and plan: 56 yo female hx of HTN and DM who presented to ER c/o generalized weakness, dysuria, increased urinary frequency as well as DKA. 1. DKA -has been slowly resolving, sugars improved now the last 48 hours with current insulin regimen. A1c appears to be very elevated, reading is not able to be obtained. Per family patient lost her Medi-[place] recently, has not been able to take her diabetes medicines at home. -Continue insulin regimen. 25 unit aspart with meals, moderate insulin sliding scale, 75 units Lantus nightly. Likely will need new prescriptions for these medicines when discharged home. - may need mental health advanced practice nurse as well. Follow with case management regarding her insurance issues. 2. Sepsis, as evidenced by fever, tachycardia leukopenia-likely source likely now appears to be E. coli bacteremia 2 out of 2 bottles. Also positive UTI. -Continue broad-spectrum antibiotics (sensitive to Rocephin), now has PICC line,Tylenol as needed pain and fever. Will likely need 2 weeks of IV antibiotic treatment (to December 12), will order for case management to set up home antibiotic. 3. Hyponatremia-resolved, monitor BMP daily 4. Low electrolytes: We will replete low magnesium today 5. GI prophylaxis: PPI 6. Vaginal itching and redness: We will start Monistat 7. Dyspnea: Likely home in 24 hours after case management has set up home IV antibiotic. Will need prescriptions as well for insulins, Monistat. Problems: Subjective 24 Hr Interval Summary Free Text/Dictation Patient complaining of some vaginal itching, otherwise no acute events overnight. Sugars are improved the last 48 hours. Patient received PICC line yesterday. Exam/Review of Systems Vital Signs Vitals Vital Signs Date Time Temp Pulse Resp B/P Pulse Ox O2 Delivery O2 Flow Rate FiO2 12/02/16 07:31 98.2 78 20 153/68 98 11/28/16 20:04 Room Air Intake and Output 12/01/16 12/01/16 12/02/16 15:00 23:00 07:00 Intake Total 50 ml 850 ml 1075 ml Balance 50 ml 850 ml 1075 ml Exam GEN lying in bed, still lethargic but more alert Head: Atraumatic Eyes: Normal Conjunctiva ENT: Normal External Ears, Nose and Mouth. Neck: Full range of motion. No meningismus. Resp: Clear to auscultation bilaterally Cardio: Regular rate and rhythm, no murmurs Abd: Soft, non tender, non distended. Normal bowel sounds Skin: No petechiae or rashes Back: No midline or flank tenderness Ext: No cyanosis, or edema Neur: Awake and alert Psych: Normal Mood and Affect Results Result Diagram: 12/02/16 0610 12/02/16 0616 Results 24 hrs Laboratory Tests Test 12/01/16 12:08 12/01/16 17:09 12/01/16 21:16 12/02/16 06:10 Bedside Glucose 142 111 95 White Blood Count 3.2 L Red Blood Count 3.77 L Hemoglobin 9.1 L Hematocrit 28.9 L Mean Corpuscular Volume 76.7 L Mean Corpuscular Hemoglobin 24.1 L Mean Corpuscular Hemoglobin Concent 31.5 L Red Cell Distribution Width 17.7 H Platelet Count 144 Mean Platelet Volume 10.9 H Neutrophils % 38.5 L Lymphocytes % 30.3 Monocytes % 13.9 H Eosinophils % 0.3 Basophils % 0.6 Nucleated Red Blood Cells % 0.9 H Neutrophils # 1.2 L Lymphocytes # 1.0 Monocytes # 0.4 Eosinophils # 0.0 Basophils # 0.0 Nucleated Red Blood Cells # 0.0 Phosphorus Level 4.2 Magnesium Level 1.9 Test 12/02/16 06:16 12/02/16 08:09 Sodium Level 146 H Potassium Level 3.5 Chloride Level 105 Carbon Dioxide Level 27 Anion Gap 18 H Blood Urea Nitrogen 6 L Creatinine 0.45 Glucose Level 140 Calcium Level 8.5 Bedside Glucose 155 Medications Medications Current Medications Ondansetron HCl (Zofran Inj) 4 mg Q6H PRN IV NAUSEA AND/OR VOMITING Last administered on 11/28/16 18:53; Admin Dose 4 MG; Start 11/28/16 at 04:30 Acetaminophen (Tylenol Liquid) 650 mg Q6H PRN PO PAIN LEVEL 1-3 OR FEVER Last administered on 12/02/16 01:13; Admin Dose 650 MG; Start 11/28/16 at 04:30 Morphine Sulfate 2 mg 2 mg Q4H PRN IV PAIN LEVEL 7-10; Start 11/28/16 at 04:30 Ceftriaxone Sodium (Rocephin) 50 ml @ 100 mls/hr Q12 IVPB Last administered on 12/02/16 08:11; Admin Dose 100 MLS/HR; Start 11/28/16 at 09:00 Diagnostic Test (Pha) (Accu-Chek) 1 ea 02 XX ; Start 11/29/16 at 02:00 Miscellaneous Information 1 ea NOTE XX ; Start 11/28/16 at 12:00 Glucose (Glutose) 15 gm Q15M PRN PO DECREASED GLUCOSE; Start 11/28/16 at 12:00 Glucose (Glutose) 22.5 gm Q15M PRN PO DECREASED GLUCOSE; Start 11/28/16 at 12: 00 Dextrose (D50w Syringe) 25 ml Q15M PRN IV DECREASED GLUCOSE; Start 11/28/16 at 12:00 Dextrose (D50w Syringe) 50 ml Q15M PRN IV DECREASED GLUCOSE; Start 11/28/16 at 12:00 Glucagon (Glucagen) 1 mg Q15M PRN IM DECREASED GLUCOSE; Start 11/28/16 at 12:00 Glucose (Glutose) 15 gm Q15M PRN BUCCAL DECREASED GLUCOSE; Start 11/28/16 at 12 :00 Pantoprazole 40 mg 40 mg DAILY@06 IV Last administered on 12/02/16 05:10; Admin Dose 40 MG; Start 11/28/16 at 20:00 Sodium Chloride (NS) 1,000 ml @ 75 mls/hr [id number] IV Last administered on 12/02 05:10; Admin Dose 75 MLS/HR; Start 11/29/16 at 10:00 Heparin Sodium (Porcine) (Heparin (5000 Units/0.5 ml)) 5,000 unit BID SC Last administered on 12/02/16 08:18; Admin Dose 5,000 UNIT; Start 11/29/16 at 21:00 Insulin Glargine (Lantus) 75 unit DAILY@08 SC Last administered on 12/02/16 08 :19; Admin Dose 75 UNIT; Start 12/01/16 at 08:00 Diphenhydramine HCl (Benadryl) 25 mg Q6H PRN PO ITCHING Last administered on t 15:14; Admin Dose 25 MG; Start 12/01/16 at 15:00 IV Flush (NS 10 ml) 10 ml PRN PRN IV FLUSH LINE; Start 12/01/16 at 17:30 Hydralazine HCl (Apresoline) 10 mg Q6H PRN IV SBP GREATER THAN 160; Start 12/01 at 17:30 Miconazole (Monistat-7) 1 supp HS VAG ; Start 12/02/16 at 10:00; Status VARUN GASTELUM Dec 02, 2016 09:59
[2016-12-02] MEDS: DIPHENHYDRAMINE 25 MG CAP PO PRN (10:42)
[2016-12-02] MEDS ORDERED: MICONAZOLE 100 MG VAG SUPP VAG SCH (11:00)
[2016-12-02 14:14] VITALS: BP 139/85; RESP 20
[2016-12-02 19:36] VITALS: BP 188/83; RESP 18
[2016-12-02 21:00] VITALS: BP 162/73; PULSE 85
[2016-12-02 21:58] VITALS: BP 156/87; PULSE 85
[2016-12-02] MEDS ORDERED: MAGNESIUM HYDROXIDE 30ML CUP PO PRN (23:30)
[2016-12-02] MEDS ORDERED: ZOLPIDEM 5 MG TAB PO PRN (23:30)
[2016-12-03] MEDS: SOD CHLORIDE 0.9% 1,000 ML IV SCH ×2 (00:35→07:20)
[2016-12-03] MEDS: ACCU-CHEK XX SCH (02:00)
[2016-12-03 02:30] VITALS: BP 156/70; RESP 18
[2016-12-03] MEDS: PANTOPRAZOLE 40 MG INJ IV SCH (05:16)
[2016-12-03 05:52] LABS: ABNORMAL IP MESSAGE 1; BASOPHILS % 0.5 % (0.0-2.0); EOSINOPHILS % 0.2 % (0.0-7.0); HEMATOCRIT 29.4 % (37.0-47.0); HEMOGLOBIN 9.2 g/dl (12.0-16.0); LYMPHOCYTES # 1.2 10^3/ul (0.8-2.9); LYMPHOCYTES % 26.9 % (15.0-51.0); MEAN CORPUSCULAR HEMOGLOBIN 24.5 pg (29.0-33.0); MEAN CORPUSCULAR HGB CONC 31.3 g/dl (32.0-37.0); MEAN CORPUSCULAR VOLUME 78.2 fl (82.0-101.0); MEAN PLATELET VOLUME 11.4 fl (7.4-10.4); MONOCYTE # 0.5 10^3/ul (0.3-0.9); MONOCYTES % 10.7 % (0.0-11.0); NEUTROPHIL # 2.2 10^3/ul (1.6-7.5); NEUTROPHILS % 50.3 % (39.0-77.0); NUCLEATED RED BLOOD CELLS% 0.5 /100WBC (0.0-0.0); PLATELET COUNT 169 10^3/UL (140-415); RED BLOOD COUNT 3.76 10^6/ul (4.20-5.40); RED CELL DISTRIBUTION WIDTH 18.1 % (11.5-14.5); WHITE BLOOD COUNT 4.3 10^3/ul (4.8-10.8)
[2016-12-03 06:29] LABS: POSITIVE DIFF @See below
[2016-12-03 06:37] LABS: CALCIUM 8.6 mg/dl (8.4-10.2); CREATININE 0.5 mg/dl (0.44-1.00); MAGNESIUM 1.8 mg/dl (1.7-2.5); PHOSPHORUS 4.4 mg/dl (2.5-4.9); POTASSIUM 3.6 mmol/L (3.5-5.1)
[2016-12-03] MEDS: ONDANSETRON 4 MG INJ IV PRN (06:48)
[2016-12-03 07:33] VITALS: BP 146/75; RESP 20
[2016-12-03] MEDS: INSULIN ASPART [NOVOLOG] 3 ML PEN SC SCH ×6 (08:08→17:43)
[2016-12-03] MEDS: INSULIN GLARGINE [LANtus] 3 ML PEN SC SCH (08:08)
[2016-12-03] MEDS ORDERED: LEVOFLOXACIN 750 MG TABLET PO ONE (09:00)
[2016-12-03] MEDS: HEPARIN 5,000 UNIT/0.5 ML VIAL SC SCH (09:52)
[2016-12-03 10:01] LABS: MICROCYTOSIS 1+ (0-0); POLYCHROMASIA 1+ (0-0)
[2016-12-03 14:52] VITALS: BP 158/77; RESP 20
[2016-12-03] MEDS ORDERED: LANT3I SC (15:25)
[2016-12-03] MEDS ORDERED: LEVO750T25 PO (15:25)
[2016-12-03] MEDS ORDERED: NOVO3I SC (15:25)
--- NOTE | 2016-12-03 15:30 | PDOCDIS ---
Discharge Instructions CONDITION Patient Condition: Good HOME CARE INSTRUCTIONS: Special Diet: carb control FOLLOW UP/APPOINTMENTS Follow-up Plan Check your blood sugars as advised by the photogrammetric technician and follow up with your new regular doctor by calling the number you have been provided write your blood sugars down to bring to your regular doctor keep taking the antibiotic (levfloxacin) for the urine/blood stream infection and the fluconazole for your vaginal yeast infection Revise aidee niveles de azcar en la len segn lo recomendado por el educador de diabetes y realice el seguimiento con stauffer nuevo mdico regular llamando al n catie que le arndt proporcionado Escriba aidee niveles de azcar en la len para que lo lleven a stauffer mdico habitual Siga tomando el antibitico (levfloxacino) para la infeccin de orina / flujo sanguneo y el fluconazol para stauffer infeccin vaginal por levaduras MERCY CORRALES MD Dec 03, 2016 15:30
[2016-12-03] MEDS ORDERED: FLUC150T41 PO (15:32)
--- NOTE | 2016-12-03 15:42 | DS ---
Date/Time of Note Date/Time of Note DATE: 12/03/16 TIME: 15:34 Discharge Summary Admission/Discharge Info Admit Date/Time Nov 28, 2016 at 11:39 Discharge Date/Time Patient Condition: Good Procedures a1c >15 ("out of range") 7.19 blood cultures Microbiology BLOOD CULTURE Final BCULT GRAM BOTTLE 1 Gram negative rods . seen on gram stain of the broth BCULT GRAM BOTTLE 2 Gram negative rods . seen on gram stain of the broth Organism 1 ESCHERICHIA COLI CRITICAL TEST VALUE BTL 1 . PHONED TO & READ BACK BY MIKHAIL BEAL,ER,1250,11/28/16 AD. CRITICAL TEST VALUE BTL 2 . PHONED TO & READ BACK BY Rivera SANCHES 11/28/16 GG 1610 E COLI M.I.C. RX --------- --- AMPICILLIN >=32 R CEFAZOLIN R CEFOTAXIME S CIPROFLOXACIN <=0.25 S GENTAMICIN <=1 S LEVOFLOXACIN 0.25 S TOBRAMYCIN <=1 S TRIMETHOPRIM/SULFAMETHOXAZOLE <=20 S urine culture 7.19 with same pathogen surveillance cultures ordered date of discharge Hx of Present Illness This is a 56 yo female hx of HTN and DM who presented to ER c/o generalized weakness, dysuria, increased urinary frequency as well as other vague symptoms. In ER, she was found to be in DKA and has been started on DKA protocol. Currently awaiting admission to ICU. She is leukopenic and also febrile with temp as high as 101.7. . Hospital Course Regarding pt's sepsis, urine and blood from admission returned with same strain of EColi S to quinolones. Suspect bacteremia from primary urine source. Pt to complete 14 days of abx. Regarding pt's poorly controlled DM, a1c "out of range." Eventually transitioned to 75 units of lantus daily with 25 units of aspart with meals. Pt to f/u with PCP for further DM management. Pt seen by DM educator during her stay. Pt c/o vaginal itching, declined exam. Suspect complicated yeast infection given very poor DM control. 10 day course of PO fluconazole (1 tab q 72 hours x 3) rx'ed. Labs also notable for neutropenia with WBCs 2000s-4000s. Pt should f/u with PCP regarding this. Pt also with +MAC (148), PCP should consider acei/arb. Copy of this DC summary provided to patient. New meds: aspart/lantus PO fluc x 10 days PO levoflox x 12 days Home Meds Active Scripts Fluconazole* (Fluconazole*) 150 Mg Tablet, 150 MG PO q3 days for 10 Days, #3 TAB Prov:MERCY CORRALES MD 12/03/16 Insulin Glargine* (Lantus*) 100 Unit/Ml Soln, 75 UNIT SC DAILY@08 for 7 Days, # 1 VIAL Prov:MERCY CORRALES MD 12/03/16 Insulin Aspart* (Novolog Insulin Pen*) 100 Unit/Ml Soln, 25 UNIT SC WITH MEALS for 7 Days, #2 VIAL Prov:MERCY CORRALES MD 12/03/16 Levofloxacin* (Levaquin*) 750 Mg Tablet, 750 MG PO DAILY@06 for 12 Days, #12 TAB Prov:MERCY CORRALES MD 12/03/16 Discontinued Reported Medications Sitagliptin* (Januvia*) 100 Mg Tablet, 100 MG PO DAILY, TAB 06/29/14 Dicyclomine Hcl* (Bentyl*) 20 Mg Tablet, 20 MG PO TID, TAB 06/29/14 Sertraline Hcl* (Sertraline Hcl*) 25 Mg Tablet, 25 MG PO DAILY, TAB 06/29/14 Ranitidine Hcl* (Ranitidine Hcl*) 150 Mg Tablet, 150 MG PO DAILY, TAB 06/29/14 Glyburide* (Glyburide*) 5 Mg Tablet, 5 MG PO BID, TAB 06/29/14 Benazepril Hcl* (Benazepril Hcl*) 10 Mg Tablet, 10 MG PO DAILY, TAB 06/29/14 Metformin Hcl* (Metformin Hcl*) 500 Mg Tablet, 500 MG PO BID, TAB 06/29/14 Discontinued Scripts Ibuprofen* (Motrin*) 600 Mg Tab, 600 MG PO Q6, #30 TAB Prov:THAO MCKEON PA-C 01/24/16 Tramadol HCl (Tramadol HCl) 50 Mg Tablet, 50 MG PO Q4 Y for PAIN, #20 TAB Prov:THAO MCKEON PA-C 01/24/16 Sulfamethoxazole-Trimethoprim* (Bactrim* DS) 800-160 Mg Tab, 1 TAB PO BID for 7 Days, TAB Prov:THAO MCKEON PA-C 01/24/16 Cephalexin* (Keflex*) 500 Mg Capsule, 500 MG PO QID for 7 Days, CAP Prov:THAO MCKEON PA-C 01/24/16 Hydrocodone Bit-Acetaminophen* ([place]*) 5-325 Mg Tab, 2 TAB PO Q4H Y for PAIN, # 40 TAB Prov:BATSHEVA PASTOR 06/30/14 Follow-up Plan PCP within 1 week for DM follow up Primary Care Provider Not On Staff Doctor Time spent on discharge: > 30 minutes Pending Labs Laboratory Tests Test 12/02/16 17:13 12/02/16 20:28 12/03/16 05:18 12/03/16 07:59 Bedside Glucose 110mg/dL (70-220) 88mg/dL (70-220) 185mg/dL (70-220) White Blood Count 4.310^3/ul (4.8-10.8) Red Blood Count 3.7610^6/ul (4.20-5.40) Hemoglobin 9.2g/dl (12.0-16.0) Hematocrit 29.4% (37.0-47.0) Mean Corpuscular Volume 78.2fl (82.0-101.0) Mean Corpuscular Hemoglobin 24.5pg (29.0-33.0) Mean Corpuscular Hemoglobin Concent 31.3g/dl (32.0-37.0) Red Cell Distribution Width 18.1% (11.5-14.5) Platelet Count 23178^3/UL (140-415) Mean Platelet Volume 11.4fl (7.4-10.4) Neutrophils % 50.3% (39.0-77.0) Lymphocytes % 26.9% (15.0-51.0) Monocytes % 10.7% (0.0-11.0) Eosinophils % 0.2% (0.0-7.0) Basophils % 0.5% (0.0-2.0) Nucleated Red Blood Cells % 0.5/100WBC (0.0-0.0) Neutrophils # 2.210^3/ul (1.6-7.5) Lymphocytes # 1.210^3/ul (0.8-2.9) Monocytes # 0.510^3/ul (0.3-0.9) Eosinophils # 0.010^3/ul (0.0-0.5) Basophils # 0.010^3/ul (0.0-0.1) Nucleated Red Blood Cells # 0.010^3/ul (0.0-0.0) Polychromasia 1+ (0-0) Microcytosis 1+ (0-0) Sodium Level 144mmol/L (135-144) Potassium Level 3.6mmol/L (3.5-5.1) Chloride Level 104mmol/L (97-110) Carbon Dioxide Level 26mmol/L (21-31) Anion Gap 18 (8-16) Blood Urea Nitrogen 8mg/dl (7-20) Creatinine 0.50mg/dl (0.44-1.00) Glucose Level 158mg/dl (70-220) Calcium Level 8.6mg/dl (8.4-10.2) Phosphorus Level 4.4mg/dl (2.5-4.9) Magnesium Level 1.8mg/dl (1.7-2.5) Test 12/03/16 12:25 Bedside Glucose 167mg/dL (70-220) MERCY CORRALES MD Dec 03, 2016 15:42
[2016-12-03] MEDS ORDERED: lancet (15:45)
[2016-12-03] MEDS ORDERED: glucose test strips (15:46)
[2016-12-03] MEDS ORDERED: GLUCOSE TEST (15:46)
[2016-12-04] MEDS ORDERED: LEVOFLOXACIN 750 MG TABLET PO SCH (06:00)
--- NOTE | 2016-12-05 08:58 | RADRPT ---
Vent Rate: 81 bpm RR Interval: 0 msec ID Interval: 126 msec QRS Duration: 74 msec QT Interval: 360 msec QTC Interval: 418 msec P-R-T Dexter: 12 - 20 - 40 degrees Normal sinus rhythm Cannot rule out Anterior infarct , age undetermined Abnormal ECG Electronically Signed By: Bean Sweet [id number]
== END 2016-12-03 19:45 | disposition home or self-care (01) | DRG 871 ==
LOC: E/R 23:34 → MS3 11-28 11:39 → MS4 11-28 21:58 → MS2 12-01 18:22
PROVIDERS: ADMIT Internal Medicine; ATTEND Internal Medicine
PROC: 02HV33Z Insertion of Infusion Device into Superior Vena Cava, Percutaneous Approach (ICD-10-PCS; principal; 2016-12-01)
PROC: B548ZZA Ultrasonography of Superior Vena Cava, Guidance (ICD-10-PCS; 2016-12-01)
DX: A41.9 Sepsis, unspecified organism (principal); E13.10 Other specified diabetes mellitus with ketoacidosis without coma; E87.1 Hypo-osmolality and hyponatremia; E83.42 Hypomagnesemia; N39.0 Urinary tract infection, site not specified; I10 Essential (primary) hypertension; B96.20 Unspecified Escherichia coli [E. coli] as the cause of diseases classified elsewhere; Z16.11 Resistance to penicillins; Z79.4 Long term (current) use of insulin
CPT/HCPCS: 36415; 36569; 36600; 71010; 76937; 80048; 80053; 80061; 81001; 82043; 82803; 82947; 82962; 83036; 83540; 83605; 83735; 84100; 84484; 85025; 85610; 85730; 86703; 86704; 86709; 86803; 87040; 87086; 87340; 93005; 96365; 96372; 96375; 97116; 97162; 97530; C9113; J0360; J0692; J0696; J1644; J1815; J2405; J3370; J3475; J7030; J7042; J7050